=== PATIENT | female | born 1985 | race Two or more races ===

== ENCOUNTER 2024-01-29 16:16 | Emergency (ER) | payer MEDICAID ==
[~2024-01-29] VITALS: Ht 162.6 cm; Wt 90.0 kg
[~2024-01-29 16:16] MED LIST: NITR-87 PO; PREN-96 PO
[2024-01-29 16:57] VITALS: BP 115/65; PULSE 87; RESP 17; TEMP 98.3; O2SAT 99
[2024-01-29] MEDS ORDERED: CARI250T PO (16:58)
[2024-01-29] MEDS: KETOROLAC TROMETH 60MG/2ML VIAL IM ONE (17:01)
[2024-01-29] MEDS: HYDROcodone-ACET 10/325MG TAB PO ONE (17:01)
== END 2024-01-29 18:05 | disposition home or self-care (01) ==
LOC: ER 16:16
DX: M79.18 Myalgia, other site (principal); M54.9 Dorsalgia, unspecified; Z79.899 Other long term (current) drug therapy
CPT/HCPCS: 96372; 99283; J1885

== ENCOUNTER 2025-02-20 07:08 | Inpatient (IN) | payer MEDICAID ==
[2025-02-18 10:46] LABS: Hematocrit 37.6 % (36.0-46.0); Hemoglobin 12.6 g/dL (12.2-16.2); Mean Corpuscular Hemoglobin 30.1 pg (28.0-32.0); Mean Corpuscular Volume 89.6 fL (80.0-100.0); Nucleated Red Blood Cells % 0.0 %
[2025-02-18 10:57] LABS: Urine Protein, UAD Negative (Negative)
[2025-02-18 11:03] LABS: INR 1.04 (0.9-1.15); Partial Thromboplastin Time 27.8 SEC (24.5-34.5); Prothrombin Time 11.0 sec (9.3-11.8)
[2025-02-18 11:21] LABS: Alanine Aminotransferase 22 U/L (7-40); Albumin 4.3 g/dL (3.2-4.8); Alkaline Phosphatase 112 U/L (46-116); Anion Gap 8 (5-15); BUN/Creatinine Ratio 13.7 (10.0-20.0); Bilirubin, Total 0.8 mg/dL (0.2-1.0); Blood Urea Nitrogen 10 mg/dL (9-23); Calcium 9.3 mg/dL (8.7-10.4); Carbon Dioxide 29 mmol/L (20-31); Chloride 104 mmol/L (98-107); Glucose 96 mg/dL (74-106); Potassium 4.1 mmol/L (3.5-5.1); Sodium 141 mmol/L (136-145); Total Protein 7.9 g/dL (5.7-8.2)
[~2025-02-20] VITALS: Ht 162.6 cm; Wt 87.1 kg
[2025-02-20] VITALS (7 sets, daily range): BP systolic 114–116; BP diastolic 69–71; PULSE 72–100; RESP 11–18; TEMP 98–98.2; O2SAT 95–100
[~2025-02-20 07:08] MED LIST changes: +CHOLCAP4 PO; +CYCL-837 PO; +CYCL0.05 OP; +FOLI-119 PO; +GABA-1250 PO; +HYDR1TAB97 PO; +LIDO5DIS21 TOP; +METH2.5T PO; -NITR-87 PO; +PANT40TA2 PO; +PILO5TAB10 PO; -PREN-96 PO
[2025-02-20] MEDS ORDERED: KETAMINE 50mg/ML 1ml syringe ONE (08:54)
[2025-02-20] MEDS ORDERED: fentaNYL CITRATE 100 MCG/2 ML VL ONE (08:54)
[2025-02-20] MEDS ORDERED: MIDAZOLAM HCL 2MG/2ML 2ml VIAL (1mg/ml) ONE (08:54)
[2025-02-20] MEDS ORDERED: LIDOCAINE 2% (LOCAL ANESTH.) PF 5ml SDV ONE (08:59)
[2025-02-20] MEDS ORDERED: PROPOFOL 10 MG/ML 20 ML IV ONE (08:59)
[2025-02-20] MEDS ORDERED: METOCLOPRAMIDE HCL 5MG/ml INJ 2ml VIAL ONE (08:59)
[2025-02-20] MEDS ORDERED: GLYCOPYRROLATE 0.2 MG/ML 1ML VIAL ONE (08:59)
[2025-02-20] MEDS ORDERED: ONDANSETRON HCL 4 MG/2 ML VIAL ONE (08:59)
[2025-02-20] MEDS ORDERED: ROCURONIUM 10MG/ML 10ML VIAL IV ONE (08:59)
[2025-02-20] MEDS: DexmedeTOMIDine 2 ML IV ONE (09:17)
[2025-02-20] MEDS ORDERED: HYDROmorphone HCL 2 MG/ML VL/or syr ONE (09:28)
[2025-02-20] MEDS: LIDOCAINE W/ EPINEPHRINE 1% 20ML VIAL ONE (09:35)
[2025-02-20] MEDS: BUPIVACAINE 0.5% P/F INJ 10 ML VIAL ONE (09:35)
[2025-02-20] MEDS ORDERED: hydrALAZINE HCL 20 MG/ML VL IV PRN (10:00)
[2025-02-20] MEDS ORDERED: FLUMAZENIL 0.1 MG/ML INJ 10ML MDV IV PRN (10:00)
[2025-02-20] MEDS ORDERED: ONDANSETRON HCL 4 MG/2 ML VIAL IV PRN (10:00)
[2025-02-20] MEDS ORDERED: HYDROmorphone HCL 2 MG/ML VL/or syr IV PRN ×2 (10:00→11:15)
[2025-02-20] MEDS ORDERED: fentaNYL CITRATE 100 MCG/2 ML VL IV PRN (10:00)
[2025-02-20] MEDS: HYDROmorphone HCL 2 MG/ML VL/or syr IV PRN ×2 (10:20→15:09)
[2025-02-20] MEDS: ACETAMINOPHEN IV 1000 MG/100ML (10MG/ML) IV PRN (10:20)
[2025-02-20] MEDS: MIDAZOLAM HCL 2MG/2ML 2ml VIAL (1mg/ml) IV ONE (10:55)
--- NOTE | 2025-02-20 11:35 | DVHOP ---
DATE OF SURGERY: 02/20/2025 PREOPERATIVE DIAGNOSES: * Cholelithiasis. * Cholecystitis. POSTOPERATIVE DIAGNOSES: * Cholelithiasis. * Cholecystitis. SURGEON: Markus Bennett MD. SERVICE CAR DRIVER: Zac Obrien NP. ANESTHESIA: General endotracheal by nurse screen tacker. PROCEDURES: * Laparoscopy. * Laparoscopic cholecystectomy. DESCRIPTION OF PROCEDURE: Under general endotracheal anesthesia with the patient's skin prepped and draped, a supraumbilical incision was made and Veress needle inserted into the peritoneal cavity by the hanging drop technique in order to establish pneumoperitoneum to 15 mmHg pressure by insufflation with carbon dioxide. With the abdomen fully distended, the needle was removed and replaced with a 5 mm trocar port through which a 0-degree viewing laparoscope was inserted and under direct vision, 5 and 10 mm ports inserted through the abdominal wall at the right anterior axillary line on the right and subxiphoid skin in the midline. The patient's abdomen was thoroughly examined by laparoscopic examination. No unexpected pathology was encountered. Instrumentation was then introduced into the peritoneal cavity and the gallbladder was placed on tension cephalad superiorly and the adhesions between the gallbladder and omentum were lysed sharply and bluntly and the gallbladder was followed into the infundibular portion of the gallbladder where the cystic duct and cystic artery were identified, circumferentially dissected, skeletonized and traced into the hepatocystic triangle to minimize the potential for inadvertent injury to the common bile duct. The cystic duct and cystic artery were then divided between metallic clips far away from the common bile duct, again attempting to avoid inadvertent injury to the common bile duct. Following division of the cystic duct and cystic artery, several accessory ducts were identified in the liver bed and controlled with hemoclips and divided. The gallbladder was resected from its liver bed. It was partially intrahepatic, which made the dissection somewhat more difficult. The fully mobilized gallbladder was placed into the specimen extraction bag through which the gallbladder was then removed from the peritoneal cavity. The right upper quadrant was irrigated. Irrigant was aspirated. Hemostasis was meticulously accomplished and found to be complete at the termination of the procedure. There was no evidence of bleeding from either the liver bed or from the port sites. Instrumentation was withdrawn. Pneumoperitoneum was evacuated. The wound was approximated using Monocryl sutures, Dermabond and Steri-Strips. The patient remained stable throughout the procedure and left the operating room following an accurate needle and sponge count. No family members were in the waiting room. MD KECIA Mojica/NARINDER TID: [id number] RECEIPT: [id number]
[2025-02-20] MEDS: GABAPENTIN 300 MG CAP PO ONE (12:00)
[2025-02-20] MEDS: CYCLOBENZAPRINE HCL 10 MG TAB PO ONE (12:00)
[2025-02-20] MEDS: HYDROcodone-ACET 5/325MG TAB PO ONE (12:02)
[2025-02-20] MEDS: D5W/SOD CHL 0.45%/KCL 20MEQ 1,000 ML IV SCH (12:20)
--- NOTE | 2025-02-20 12:52 | DVHHP2 ---
Review of Systems Allergies: Coded Allergies: NO KNOWN ALLERGIES (Unverified , 12/19/22) Medications Current Medications Medications Dose Ordered Sig/Tirso Route Start Time Stop Time Status Last Admin Dose Admin Potassium Chloride/Dextrose/ Sod Cl 1,000 ml @ 120 mls/hr Q8H20M IV 02/20/25 11:15 02/20/25 12:20 120 MLS/HR Hydromorphone HCl 1 mg Q2HPRN PRN IV 02/20/25 11:15 Ondansetron HCl 4 mg Q4HPRN PRN IV 02/20/25 11:15 Cefazolin Sodium/ Dextrose 50 ml @ 50 mls/hr Q8HR IV 02/20/25 14:00 Exam Vital Signs Vital Signs Date Time Temp Pulse Resp B/P (MAP) Pulse Ox O2 Delivery O2 Flow Rate FiO2 02/20/25 12:30 82 12 106/53 (70) 100 02/20/25 10:15 Room Air 0 100 02/20/25 09:45 97.5 97.5 Labs/Xrays Labs Test 02/18/25 10:30 Range/Units White Blood Count 5.5 4.4-10.8 10^3/uL Red Blood Count 4.19 4.0-5.20 10^6/uL Hemoglobin 12.6 12.2-16.2 g/dL Hematocrit 37.6 36.0-46.0 % Mean Corpuscular Volume 89.6 80.0-100.0 fL Mean Corpuscular Hemoglobin 30.1 28.0-32.0 pg Mean Corpuscular Hemoglobin Concent 33.6 32.0-36.0 g/dL Red Cell Distribution Width 15.2 H 11.8-14.3 % Platelet Count 214 140-450 10^3/uL Mean Platelet Volume 8.8 6.9-10.8 fL Neutrophils (%) (Auto) 73.4 37.0-80.0 % Lymphocytes (%) (Auto) 16.7 10.0-50.0 % Monocytes (%) (Auto) 7.8 0.0-12.0 % Eosinophils (%) (Auto) 1.7 0.0-7.0 % Basophils (%) (Auto) 0.4 0.0-2.0 % Neutrophils # (Auto) 4.0 1.6-8.6 10 ^3/uL Lymphocytes # (Auto) 0.9 0.4-5.4 10 ^3/uL Monocytes # (Auto) 0.4 0-1.3 10 ^3/uL Eosinophils # (Auto) 0.1 0-0.8 10 ^3/uL Basophils # (Auto) 0 0-0.2 10 ^3/uL Nucleated Red Blood Cells 0.0 % Prothrombin Time 11.0 9.3-11.8 sec Prothrombin Time INR 1.04 0.9-1.15 Activated Partial Thromboplast Time 27.8 24.5-34.5 SEC Urine Color Yellow Yellow Urine Clarity Clear Clear Urine pH 5.5 5.0-9.0 Urine Specific [place] 1.024 1.001-1.035 Urine Protein Negative Negative Urine Ketones Negative Negative Urine Blood Negative Negative /uL Urine Nitrite Negative Negative Urine Bilirubin Negative Negative Urine Urobilinogen Normal Negative mg/dL Urine Leukocyte Esterase 3+ Negative /uL Urine RBC 1 0 - 4 /hpf Urine Microscopic WBC 12 H 0-5 /HPF Urine Squamous Epithelial Cells Few <5 /hpf Urine Bacteria Few H None Seen /hpf Urine Glucose Normal Normal mg/dL Urine Test Negative Negative Sodium Level 141 136-145 mmol/L Potassium Level 4.1 3.5-5.1 mmol/L Chloride Level 104 98-107 mmol/L Carbon Dioxide Level 29 20-31 mmol/L Anion Gap 8 5-15 Blood Urea Nitrogen 10 9-23 mg/dL Creatinine 0.73 0.550-1.02 mg/dL Glomerular Filtration Rate Calc 107 >90 mL/min BUN/Creatinine Ratio 13.7 10.0-20.0 Serum Glucose 96 74-106 mg/dL Calcium Level 9.3 8.7-10.4 mg/dL Total Bilirubin 0.8 0.2-1.0 mg/dL Aspartate Amino Transferase (AST) 17 13-40 U/L Alanine Aminotransferase (ALT) 22 7-40 U/L Alkaline Phosphatase 112 46-116 U/L Total Protein 7.9 5.7-8.2 g/dL Albumin 4.3 3.2-4.8 g/dL SEPSIS Sepsis Screen Physician Orders Suspender Maker (02/20/25 09:56) Notify Anesth. For Changes: (02/20/25 09:56) Discharge To Room Per Criteria (02/20/25 09:56) Acetaminophen Iv (Ofirmev) (02/20/25 10:00) To Pacu For Recovery (02/20/25 11:11) Oxygen Via Cool Mist Mask (02/20/25 11:11) Abdominal Binder (02/20/25 11:11) Sequential Compression Device (02/20/25 11:11) Incentive Spirometry Q 1hr (02/20/25 11:11) Clear Liq Diet (02/20/25 Lunch) Bilirubin, Total (02/21/25 04:00) D5w/Sod Chl 0.45%/Kcl 20meq (02/20/25 11:15) Hydromorphone Injection (Dilaudid Inject (02/20/25 11:15) Ondansetron Hcl (Zofran) (02/20/25 11:15) Cefazolin 2 Gm/[id number] (Ancef) (02/20/25 14:00) Page Hospitalist For Admission (02/20/25 11:11) Call/Page Hospitalist/Atten Fo (02/20/25 11:11) Admit (02/20/25 11:49) Hydromorphone Injection (Dilaudid Inject (02/20/25 13:00) Gabapentin Capsule (Neurontin Capsule) (02/20/25 14:00) Folic Acid Tablet (02/20/25 13:00) Folic Acid Tablet (02/21/25 10:00) Hydrocodone-Acet 5/325mg Tab ([place] 5/32 (02/20/25 13:00) Pantoprazole Tablet (Protonix Tablet) (02/21/25 06:00) Urinalysis (02/20/25 12:48) Complete Blood Count (02/21/25 06:00) Comprehensive Metabolic Panel (02/21/25 06:00) Vital Signs Date Time Temp Pulse Resp B/P (MAP) Pulse Ox O2 Delivery O2 Flow Rate FiO2 02/20/25 12:30 82 12 106/53 (70) 100 02/20/25 11:30 75 12 108/56 (73) 100 02/20/25 11:00 73 12 114/72 (86) 100 02/20/25 10:32 85 19 114/65 02/20/25 10:30 78 19 114/65 (81) 100 02/20/25 10:20 83 24 120/66 02/20/25 10:15 87 11 103/65 (78) 100 02/20/25 10:15 Room Air 0 100 02/20/25 10:15 100 11 100 Room Air 0 02/20/25 10:00 83 14 97/52 (67) 98 02/20/25 09:55 83 13 94/46 (62) 98 02/20/25 09:50 82 14 94/43 (60) 98 02/20/25 09:45 97.5 84 18 96/48 (64) 98 97.5 02/20/25 09:45 Mask 10.0 98 02/20/25 09:45 84 18 98 Mask 10.0 02/20/25 07:18 98.1 82 20 122/66 (84) 96 98.1 Medications Medications Dose Ordered Sig/Tirso Route Start Time Stop Time Status Last Admin Dose Admin Acetaminophen 1,000 mg ONCE PRN IV 02/20/25 10:00 02/20/25 10:12 DC 02/20/25 10:20 1,000 MG Acetaminophen/ Hydrocodone Bitart 1 tab ONCE ONCE PO 02/20/25 11:15 02/20/25 11:34 DC 02/20/25 12:02 1 TAB Bupivacaine HCl 10 ml STK-MED ONCE .ROUTE 02/20/25 08:36 02/20/25 08:36 DC 02/20/25 09:35 10 ML Cyclobenzaprine HCl 10 mg ONCE ONCE PO 02/20/25 11:15 02/20/25 11:33 DC 02/20/25 12:00 10 MG Gabapentin 300 mg ONCE ONCE PO 02/20/25 11:15 02/20/25 11:34 DC 02/20/25 12:00 300 MG Hydromorphone HCl 0.25 mg Q10M PRN IV 02/20/25 10:00 02/20/25 10:31 DC 02/20/25 10:32 0.25 MG Lidocaine/ Epinephrine 20 ml STK-MED ONCE .ROUTE 02/20/25 08:36 02/20/25 08:36 DC 02/20/25 09:35 10 ML Midazolam HCl 2 mg ONCE ONCE IV 02/20/25 10:45 02/20/25 10:51 DC 02/20/25 10:55 1 MG Potassium Chloride/Dextrose/ Sod Cl 1,000 ml @ 120 mls/hr Q8H20M IV 02/20/25 11:15 02/20/25 12:20 120 MLS/HR Assessment/Plan Assessment/Plan see dictated note Plan discussed with: Patient My Orders Orders - MONSTER SZYMANSKI MD Procedure Category Date Status Time Admit ADMIT 02/20/25 Transmitted 11:49 Hydromorphone PHA 02/20/25 Verified Injection (Dilaudid 13:00 Gabapentin Capsule PHA 02/20/25 Verified (Neurontin Capsule) 14:00 Folic Acid Tablet PHA 02/20/25 Verified 13:00 Folic Acid Tablet PHA 02/21/25 Verified 10:00 Hydrocodone-Acet PHA 02/20/25 Verified 5/325mg Tab (Himrod 13:00 Pantoprazole Tablet PHA 02/21/25 Verified (Protonix Tablet) 06:00 Urinalysis LAB 02/20/25 Uncollected 12:48 Complete Blood Count LAB 02/21/25 Verified 06:00 Comprehensive LAB 02/21/25 Verified Metabolic Panel 06:00 Date of Service: Feb 20, 2025 Billing Provider: MONSTER SZYMANSKI MD Common Visit Codes: [id number] INP/OBS CARE (HIGH) MONSTER SZYMANSKI MD Feb 20, 2025 12:52
--- NOTE | 2025-02-20 13:07 | DVHHP ---
HISTORY OF PRESENT ILLNESS: The patient is a 40-year-old lady who was admitted after she underwent laparoscopic cholecystectomy for cholelithiasis and chronic cholecystitis. The patient at this time denies any significant pain. No chest pain, no shortness of breath, no nausea or vomiting. REVIEW OF SYSTEMS: Review of rest of systems otherwise currently negative. PAST MEDICAL HISTORY: Significant for fibromyalgia, Sjogren's syndrome. MEDICATIONS: She takes gabapentin, [place], methotrexate, cyclobenzaprine. ALLERGIES: No known drug allergies. SOCIAL HISTORY: Lives with her children. Denies smoking or alcohol. FAMILY HISTORY: Negative. PHYSICAL EXAMINATION: GENERAL: The patient is awake and alert. VITAL SIGNS: Temperature is 97.5, pulse 82 per minute, blood pressure 106/53. SHEENT: Unremarkable. NECK: There is no JVD. No pedal edema. LUNGS: Equal bilaterally. No added sounds. CARDIOVASCULAR: S1 and S2 is regular without murmurs. ABDOMEN: Soft. Bowel sounds are hypoactive. NEUROLOGIC: Nonfocal. MUSCULOSKELETAL: Normal. ASSESSMENT AND PLAN: * Fibromyalgia. The patient will continue on folic acid and gabapentin. * Sjogren's syndrome. * Obesity. * Questionable UTI for which a UA will be repeated. * Status post laparoscopic cholecystectomy for cholecystitis and chronic cholecystitis for which she will be placed on pain medications and IV fluids. MD RYAN Alberto/JOE TID: [id number] RECEIPT: [id number]
[2025-02-20] MEDS: GABAPENTIN 300 MG CAP PO SCH (14:16)
[2025-02-20] MEDS: FOLIC ACID 1 MG TAB PO ONE (15:00)
[2025-02-20] MEDS: ceFAZolin 2 GM/D5W50ml 50 ML IV SCH (17:52)
[2025-02-20] MEDS: HYDROcodone-ACET 5/325MG TAB PO PRN (18:04)
[2025-02-21] VITALS (8 sets, daily range): BP systolic 100–142; BP diastolic 64–87; PULSE 61–80; RESP 16–19; TEMP 98.1–99.6; O2SAT 96–100
[2025-02-21 05:30] LABS: Hematocrit 34.9 % (36.0-46.0); Hemoglobin 11.4 g/dL (12.2-16.2); Mean Corpuscular Hemoglobin 29.5 pg (28.0-32.0); Mean Corpuscular Volume 90.4 fL (80.0-100.0); Nucleated Red Blood Cells % 0.0 %
[2025-02-21 05:54] LABS: Alanine Aminotransferase 30 U/L (7-40); Albumin 3.9 g/dL (3.2-4.8); Alkaline Phosphatase 98 U/L (46-116); Anion Gap 8 (5-15); BUN/Creatinine Ratio 9.9 (10.0-20.0); Calcium 8.8 mg/dL (8.7-10.4); Carbon Dioxide 25 mmol/L (20-31); Chloride 106 mmol/L (98-107); Potassium 4.1 mmol/L (3.5-5.1); Sodium 139 mmol/L (136-145); Total Protein 7.3 g/dL (5.7-8.2)
[2025-02-21 05:55] LABS: Bilirubin, Total 0.6 mg/dL (0.2-1.0)
[2025-02-21 05:57] LABS: Blood Urea Nitrogen 7 mg/dL (9-23); Glucose 127 mg/dL (74-106)
[2025-02-21] MEDS: PANTOPRAZOLE 40 MG TAB PO SCH (06:31)
[2025-02-21] MEDS: FOLIC ACID 1 MG TAB PO SCH (09:10)
[2025-02-21] MEDS: KETOROLAC TROMETH 30 MG/ML 1ML VIAL IV ONE (09:54)
[2025-02-21] MEDS: ONDANSETRON HCL 4 MG/2 ML VIAL IV PRN (09:54)
--- NOTE | 2025-02-21 14:07 | DVHPN2 ---
Progress Note Date Seen: Feb 21, 2025 Medical Necessity Reason Pt with a Central, PICC or Fol: No Subjective Patient reports: No new complaints Review of Systems: HEENT:Normal, CVS:Normal, RESPIRATORY:Normal, GI:Normal, :Normal, MSK:Normal, NEURO:Normal Objective vital signs Vital Sign Date Time Temp Pulse Resp B/P (MAP) Pulse Ox O2 Delivery O2 Flow Rate FiO2 02/21/25 13:36 74 17 120/75 02/21/25 12:40 99.6 99 99.6 02/21/25 08:00 Room Air* 0 21 Total Intake and Output 02/20/25 02/20/25 02/21/25 15:00 23:00 07:00 Intake Total 100 ml 320 ml Balance 100 ml 320 ml medications Current Medications Medications Dose Ordered Sig/Tirso Route Start Time Stop Time Status Last Admin Dose Admin Potassium Chloride/Dextrose/ Sod Cl 1,000 ml @ 120 mls/hr Q8H20M IV 02/20/25 11:15 02/20/25 21:33 120 MLS/HR Ondansetron HCl 4 mg Q4HPRN PRN IV 02/20/25 11:15 02/21/25 09:54 4 MG Cefazolin Sodium/ Dextrose 50 ml @ 50 mls/hr Q8HR IV 02/20/25 14:00 02/21/25 13:12 50 MLS/HR Hydromorphone HCl 1 mg Q3HP PRN IV 02/20/25 13:00 02/21/25 13:36 1 MG Gabapentin 300 mg TID PO 02/20/25 14:00 02/21/25 13:12 300 MG Folic Acid 1 mg DAILY PO 02/21/25 10:00 02/21/25 09:10 1 MG Acetaminophen/ Hydrocodone Bitart 1 tab Q6HPRN PRN PO 02/20/25 13:00 02/21/25 01:40 1 TAB Pantoprazole Sodium 40 mg DAILY@0600 PO 02/21/25 06:00 02/21/25 06:31 40 MG Examination: GENERAL:Normal, HEENT:Normal, NECK:Normal, LUNGS:Normal, CVS:Normal, ABDOMEN:Normal, MSK:Normal, SKIN:Normal, NEURO:Normal, :Normal laboratory and microbiology Laboratory Tests 02/21/25 04:54 Test 02/21/25 04:54 Range/Units Serum Glucose 127 H 74-106 mg/dL Problem List/Assessment/Plan Problem List/Assessment/Plan ASSESSMENT AND PLAN: * Fibromyalgia. The patient will continue on folic acid and gabapentin. * Sjogren's syndrome. * Obesity. * Questionable UTI for which a UA will be repeated. * Status post laparoscopic cholecystectomy for cholelithiasis and chronic cholecystitis for which she will be placed on pain medications and IV fluids. Plan discussed with: Patient My Orders My Orders Orders - MONSTER SZYMANSKI MD Procedure Category Date Status Time Full Liq Diet DIET 02/21/25 Transmitted Dinner D5 1/2 Ns Potassium PHA 02/21/25 Verified 20meq 14:15 Hydromorphone PHA 02/21/25 Verified Injection (Dilaudid 14:15 Ketorolac Injection PHA 02/21/25 Verified (Toradol Injection) 14:15 Complete Blood Count LAB 02/22/25 Verified 06:00 Comprehensive LAB 02/22/25 Verified Metabolic Panel 06:00 Discontinue Tele KATELYNN 02/21/25 Verified 14:03 Transfer Orders XFER 02/21/25 Verified 14:03 Date of Service: Feb 21, 2025 Billing Provider: MONSTER SZYMANSKI MD Common Visit Codes: [id number] INP/OBS CARE(HIGH) MONSTER SZYMANSKI MD Feb 21, 2025 14:07
[2025-02-21] MEDS ORDERED: HYDROmorphone HCL 2 MG/ML VL/or syr IV PRN (14:15)
[2025-02-21] MEDS: KETOROLAC TROMETH 30 MG/ML 1ML VIAL IV PRN (15:59)
[2025-02-21] MEDS: D5W/SOD CHL 0.45%/KCL 20MEQ 1,000 ML IV SCH (16:09)
[2025-02-21 19:20] LABS: Urine Protein, UAD Negative (Negative)
[2025-02-22] VITALS (7 sets, daily range): BP systolic 98–120; BP diastolic 51–71; PULSE 66–106; RESP 15–19; TEMP 97.6–99.2; O2SAT 95–98
[2025-02-22 06:05] LABS: Hematocrit 33.1 % (36.0-46.0); Hemoglobin 10.9 g/dL (12.2-16.2); Mean Corpuscular Hemoglobin 29.5 pg (28.0-32.0); Mean Corpuscular Volume 89.8 fL (80.0-100.0); Nucleated Red Blood Cells % 0.0 %
[2025-02-22 06:37] LABS: Alanine Aminotransferase 21 U/L (7-40); Albumin 3.6 g/dL (3.2-4.8); Alkaline Phosphatase 97 U/L (46-116); Anion Gap 8 (5-15); BUN/Creatinine Ratio 8.2 (10.0-20.0); Calcium 8.7 mg/dL (8.7-10.4); Carbon Dioxide 29 mmol/L (20-31); Chloride 105 mmol/L (98-107); Glucose 92 mg/dL (74-106); Potassium 4.1 mmol/L (3.5-5.1); Sodium 142 mmol/L (136-145); Total Protein 6.7 g/dL (5.7-8.2)
[2025-02-22 06:38] LABS: Bilirubin, Total 0.8 mg/dL (0.2-1.0); Blood Urea Nitrogen 6 mg/dL (9-23)
--- NOTE | 2025-02-22 09:51 | DVHPN2 ---
Progress Note Date Seen: Feb 22, 2025 Medical Necessity Reason Pt with a Central, PICC or Fol: No Objective vital signs Vital Sign Date Time Temp Pulse Resp B/P (MAP) Pulse Ox O2 Delivery O2 Flow Rate FiO2 02/22/25 05:00 97.6 88 15 120/71 (87) 96 97.6 02/21/25 20:00 Room Air* 0 21 Total Intake and Output 02/21/25 02/21/25 02/22/25 15:00 23:00 07:00 Intake Total 830 ml 1200 ml 1400 ml Balance 830 ml 1200 ml 1400 ml medications Current Medications Medications Dose Ordered Sig/Tirso Route Start Time Stop Time Status Last Admin Dose Admin Ondansetron HCl 4 mg Q4HPRN PRN IV 02/20/25 11:15 02/21/25 09:54 4 MG Cefazolin Sodium/ Dextrose 50 ml @ 50 mls/hr Q8HR IV 02/20/25 14:00 02/22/25 05:53 50 MLS/HR Gabapentin 300 mg TID PO 02/20/25 14:00 02/22/25 05:53 300 MG Folic Acid 1 mg DAILY PO 02/21/25 10:00 02/21/25 09:10 1 MG Acetaminophen/ Hydrocodone Bitart 1 tab Q6HPRN PRN PO 02/20/25 13:00 02/21/25 20:44 1 TAB Pantoprazole Sodium 40 mg DAILY@0600 PO 02/21/25 06:00 02/22/25 05:53 40 MG Potassium Chloride/Dextrose/ Sod Cl 1,000 ml @ 100 mls/hr Q10H IV 02/21/25 14:15 02/22/25 06:05 100 MLS/HR Hydromorphone HCl 1 mg Q4HP PRN IV 02/21/25 14:15 Ketorolac Tromethamine 15 mg Q6HPRN PRN IV 02/21/25 14:15 02/26/25 14:14 02/22/25 06:04 15 MG laboratory and microbiology Laboratory Tests 02/22/25 05:14 Test 02/22/25 05:14 Range/Units Serum Glucose 92 74-106 mg/dL Problem List/Assessment/Plan Problem List/Assessment/Plan 02/22/25 feels much better, labs reviewed, n ormal, she is cleared to be discharged, regular diet, may shower on 02/24/25, to return to the clinic in two weeks, Plan discussed with: Patient NUPUR CHANEL MD Feb 22, 2025 09:51
[2025-02-22] MEDS ORDERED: ZOFR4T PO (16:32)
[2025-02-22] MEDS ORDERED: DOCU-265 PO (16:32)
[2025-02-22] MEDS ORDERED: AUG875T PO (16:32)
--- NOTE | 2025-02-22 16:36 | DVHDS2 ---
Discharge Summary Date of Admission Feb 20, 2025 at 11:49 Date of Discharge: Feb 22, 2025 Labs/Diagnostic Data: Laboratory Results Test 02/22/25 05:14 02/21/25 18:52 02/18/25 10:30 White Blood Count 9.2 10^3/uL (4.4-10.8) Red Blood Count 3.69 10^6/uL (4.0-5.20) Hemoglobin 10.9 g/dL (12.2-16.2) Hematocrit 33.1 % (36.0-46.0) Mean Corpuscular Volume 89.8 fL (80.0-100.0) Mean Corpuscular Hemoglobin 29.5 pg (28.0-32.0) Mean Corpuscular Hemoglobin Concent 32.9 g/dL (32.0-36.0) Red Cell Distribution Width 15.7 % (11.8-14.3) Platelet Count 195 10^3/uL (140-450) Mean Platelet Volume 8.9 fL (6.9-10.8) Neutrophils (%) (Auto) 81.5 % (37.0-80.0) Lymphocytes (%) (Auto) 10.4 % (10.0-50.0) Monocytes (%) (Auto) 6.9 % (0.0-12.0) Eosinophils (%) (Auto) 1.0 % (0.0-7.0) Basophils (%) (Auto) 0.2 % (0.0-2.0) Neutrophils # (Auto) 7.5 10 ^3/uL (1.6-8.6) Lymphocytes # (Auto) 1.0 10 ^3/uL (0.4-5.4) Monocytes # (Auto) 0.6 10 ^3/uL (0-1.3) Eosinophils # (Auto) 0.1 10 ^3/uL (0-0.8) Basophils # (Auto) 0 10 ^3/uL (0-0.2) Nucleated Red Blood Cells 0.0 % Sodium Level 142 mmol/L (136-145) Potassium Level 4.1 mmol/L (3.5-5.1) Chloride Level 105 mmol/L (98-107) Carbon Dioxide Level 29 mmol/L (20-31) Anion Gap 8 (5-15) Blood Urea Nitrogen 6 mg/dL (9-23) Creatinine 0.73 mg/dL (0.550-1.02) Glomerular Filtration Rate Calc 107 mL/min (>90) BUN/Creatinine Ratio 8.2 (10.0-20.0) Serum Glucose 92 mg/dL (74-106) Calcium Level 8.7 mg/dL (8.7-10.4) Total Bilirubin 0.8 mg/dL (0.2-1.0) Aspartate Amino Transferase (AST) 20 U/L (13-40) Alanine Aminotransferase (ALT) 21 U/L (7-40) Alkaline Phosphatase 97 U/L (46-116) Total Protein 6.7 g/dL (5.7-8.2) Albumin 3.6 g/dL (3.2-4.8) Urine Color Light-yellow (Yellow) Urine Clarity Clear (Clear) Urine pH 6.5 (5.0-9.0) Urine Specific [place] 1.015 (1.001-1.035) Urine Protein Negative (Negative) Urine Ketones Negative (Negative) Urine Blood Negative /uL (Negative) Urine Nitrite Negative (Negative) Urine Bilirubin Negative (Negative) Urine Urobilinogen Normal mg/dL (Negative) Urine Leukocyte Esterase 3+ /uL (Negative) Urine RBC 3 /hpf (0 - 4) Urine Microscopic WBC 16 /HPF (0-5) Urine Squamous Epithelial Cells Few /hpf (<5) Urine Bacteria None seen /hpf (None Seen) Urine Glucose Normal mg/dL (Normal) Prothrombin Time 11.0 sec (9.3-11.8) Prothrombin Time INR 1.04 (0.9-1.15) Activated Partial Thromboplast Time 27.8 SEC (24.5-34.5) Urine Test Negative (Negative) Other Laboratory Tests 02/22/25 05:14 Brief Hx & Hospital Course: patient is a 40-year-old lady who was admitted after she underwent laparoscopic cholecystectomy for cholelithiasis and chronic cholecystitis. The patient at this time denies any significant pain. No chest pain, no shortness of breath, no nausea or vomiting. 02/22:. Patient on imaging was found to have cholecystitis. Patient presented with cholecystitis and cholelithiasis. Patient was taken for laparoscopic cholecystectomy. Patient tolerated the procedure well. Patient feels well after the procedure. Tolerating p.o., passing gas, normal bowel sounds. Nausea and improved and minimal. Patient is cleared by surgery in his stable for discharge as per plan below. Diagnosis: Cholecystitis, status post laparoscopic cholecystectomy 02/20/2025. Symptomatic cholelithiasis Fibromyalgia. The patient will continue on folic acid and gabapentin. Sjogren's syndrome. Obesity. BMI 33 UTI cystitis possible. Plan: -Zofran as needed for nausea -Augmentin 875 mg twice daily for 3 days -Docusate 100 mg b.i.d. pills to take for 1 month -For pain use 1st line Tylenol, second-line ibuprofen OTC, 3rd line use position [place] which patient has from other provider. -Full liquid diet for 1 week -Continue home medications -Follow up with PCP -Follow up with surgery 10 days Condition at Discharge: Good Final Diagnosis/Problems List Cholecystitis, status post laparoscopic cholecystectomy 02/20/2025. Symptomatic cholelithiasis Fibromyalgia. The patient will continue on folic acid and gabapentin. Sjogren's syndrome. Obesity. BMI 33 UTI cystitis possible. Discharge Disposition: Eloped Discharge Instruct/Medications Scheduled Cholecalciferol (D3-50), 50,000 UNIT PO Q7D, (Reported) Cyclobenzaprine Hcl (Cyclobenzaprine Hcl), 5 MG PO BID, (Reported) Cyclosporine (Ophth) (Restasis), 0.05 % OP BID, (Reported) Folic Acid (Folic Acid), 1 MG PO DAILY, (Reported) Gabapentin (Gabapentin), 300 MG PO TID, (Reported) Hydrocodone-Acetaminophen (Hydrocodone/Acetaminophen 5-325 mg), 1 TAB PO BID, (Reported) Methotrexate (Methotrexate), 6 TAB PO QWEEKLY, (Reported) Pantoprazole Sodium Sesquihydr (Protonix), 40 MG PO DAILY, (Reported) [place] Hcl (Salagen), 20 MG PO DAILY, (Reported) Miscellaneous Medications Lidocaine (Lidoderm 5% Topical Patch), 1 PATCH TOP, (Reported) Discharge Statement: "Patient was advised to return to the ER or call 911 if any headaches, dizziness, shortness of breath, chest pain, abdominal pain, bleeding, fevers, or worsening of medical condition. Patient was counseled about treatment plan, medications, possible side effects, patientverbalized understanding. All questions were answered to the best of my ability. This discharge took greater then 30 minutes in planning, reviewing documentation, counseling the patient, and discussing with other team members." ASSESSMENT ASSESSMENT Assessment Date of Service: Feb 22, 2025 Billing Provider: ELSA GATES MD Common Visit Codes: [id number] DISCH DAY >30min ELSA GATES MD Feb 22, 2025 16:36
== END 2025-02-22 18:15 | disposition home or self-care (01) | DRG 263 ==
LOC: SUR 07:08 → OVERFLOW 11:49 → EAST 16:08 → TELE-EAST 02-21 01:40 → EAST 02-22 02:50
PROVIDERS: ADMIT Internal Medicine; ATTEND Internal Medicine
PROC: 0FT44ZZ Resection of Gallbladder, Percutaneous Endoscopic Approach (ICD-10-PCS; principal; 2025-02-20 08:59)
DX: K80.10 Calculus of gallbladder with chronic cholecystitis without obstruction (principal); E66.9 Obesity, unspecified; N30.90 Cystitis, unspecified without hematuria; M35.00 Sjogren syndrome, unspecified; M79.7 Fibromyalgia; Z68.33 Body mass index [BMI] 33.0-33.9, adult; K66.0 Peritoneal adhesions (postprocedural) (postinfection); K82.8 Other specified diseases of gallbladder
CPT/HCPCS: 36415; 80053; 81001; 81025; 85025; 85610; 85730; 86850; 86900; 86901; G0378; J0131; J1100; J1885; J2003; J2250; J2405; J2704; J3490